=== PATIENT | female | born 1960 | race Caucasian/White ===

== ENCOUNTER → 2016-09-20 | Outpatient (CLI) | payer BC ==
[~2016-09-20] MED LIST: DEXL60CA PO; KRIL500C PO; VITA1TAB3 PO; [UNRECOGNIZED DRUG - CODE] MC
--- NOTE | 2016-09-20 16:13 | RAD ---
Exam: PA and lateral chest radiograph History: Left-sided chest pain, tobacco use for 9 years. Comparison: None. Findings: Cardiomediastinal silhouette is within normal limits for size. Bilateral lung pastrana are free of focal infiltrate. No pleural effusion is seen. Degenerative changes are present in spine. Impression: No acute cardiopulmonary process.
== END | disposition home or self-care (01) ==
LOC: DXRADRC 15:59
PROVIDERS: ATTEND Nurse Practitioner Family
DX: R07.9 Chest pain, unspecified (principal); Z72.0 Tobacco use
CPT/HCPCS: 71020

== ENCOUNTER → 2020-05-01 | Outpatient (CLI) | payer BC ==
[~2020-05-01] MED LIST changes: -DEXL60CA PO; +DEXL60CA2 PO
--- NOTE | 2020-05-01 11:31 | RAD ---
MR#: [id number] Date of Study: 05/01/2020 Ordering Physician: RAYMUNDO NGUYEN, Referring Physician: OMARI BANUELOS Tech: MAXIMILIAN Blum APPROVED REPORT Test Type: Patient dosed and no images obtained Stress Nurse/Tech: MAXIMILIAN Blum Test Indications: Chest Discomfort Cardiac History: Family Hx Medications: see EHR Medical History: see EHR Nurse/Tech Notes Study terminated during imaging due to altered emotional state Rest: Stress: Viability: Radiopharm.Tc99m Sestamibi [id number] Img Date 05/01/2020 Inj-Img [id number]. Conclusion 1. Patient was injected with the radiotracer prior to nuclear imaging but the test could not be compl eted due to patient's emotional distress. No imaging or EKG available for interpretation. Signed by : Raymundo Nguyen, Electronically Approved : 05/01/2020 11:30:13
== END ==
LOC: NM 07:47
PROVIDERS: ATTEND Internal Medicine Cardiovascular Disease
DX: Z53.9 Procedure and treatment not carried out, unspecified reason (principal); R07.89 Other chest pain
CPT/HCPCS: A9500